=== PATIENT | male | born 1960 | race Caucasian/White ===

== ENCOUNTER 2024-12-21 19:40 | Emergency (ER) | payer BC ==
[~2024-12-21] VITALS: Ht 172.7 cm; Wt 99.8 kg
[2024-12-21 20:02] VITALS: BP 154/101; TEMP 98.2; O2SAT 98
[2024-12-21] MEDS ORDERED: AMOX-430 PO (20:14)
[2024-12-21] MEDS ORDERED: TDAP [DIPH/PERTUSSIS/TET] 0.5 ML VIAL IM ONE (20:20)
[2024-12-21] MEDS: BACI/NEOM/POLY B OINT PKT 1 UDPKT PACKET TP ONE (20:26)
[2024-12-21] MEDS: TDAP [DIPH/PERTUSSIS/TET] 0.5 ML VIAL IM ONE (20:26)
== END 2024-12-21 20:33 | disposition home or self-care (01) ==
LOC: ER 19:53
DX: S51.812A Laceration without foreign body of left forearm, initial encounter (principal); E11.9 Type 2 diabetes mellitus without complications; I10 Essential (primary) hypertension; Z60.2 Problems related to living alone; Y04.1XXA Assault by human bite, initial encounter; Y93.89 Activity, other specified; Y92.89 Other specified places as the place of occurrence of the external cause; Y99.8 Other external cause status
CPT/HCPCS: 90715